=== PATIENT | female | born 1950 | race Caucasian/White ===

== ENCOUNTER 2021-02-06 10:40 | Outpatient (REF) | payer MEDICARE, OTHER, SELFPAY | END 2021-02-06 10:41 | disposition home or self-care (01) | LOC: LBN 10:40 | PROVIDERS: Visit Provider Nurse Practitioner Family | DX: K52.9 Noninfective gastroenteritis and colitis, unspecified (principal) | CPT/HCPCS: 87329 ==

== ENCOUNTER 2021-02-07 09:20 | Outpatient (REF) | payer MEDICARE, OTHER, SELFPAY ==
[2021-02-07 23:44] LABS: Campylobacter PCR Negative (Negative); Salmonella PCR Negative (Negative); Shiga Toxin PCR Negative (Negative); Shigella/Enteroinvasive Ecoli Negative (Negative)
== END 2021-02-07 09:21 | disposition home or self-care (01) ==
LOC: LBN 09:20
PROVIDERS: Visit Provider Nurse Practitioner Family
DX: K52.9 Noninfective gastroenteritis and colitis, unspecified (principal)
CPT/HCPCS: 87329; 87505; 83630; 86674

== ENCOUNTER → 2024-06-22 14:51 | Outpatient (BNVA) | payer MEDICARE, OTHER, SELFPAY | PROVIDERS: PCP Physician Assistant; Referring Provider Physician Assistant; Visit Provider Podiatrist | DX: B07.0 Plantar wart (principal); L84 Corns and callosities; M67.02 Short Achilles tendon (acquired), left ankle; M79.672 Pain in left foot | CPT/HCPCS: 17110; 99203 ==

== ENCOUNTER → 2024-07-22 08:05 | Outpatient (BNVA) | payer MEDICARE, OTHER, SELFPAY | PROVIDERS: PCP Physician Assistant; Referring Provider Physician Assistant; Visit Provider Podiatrist | DX: B07.0 Plantar wart (principal); L84 Corns and callosities; M67.02 Short Achilles tendon (acquired), left ankle | CPT/HCPCS: 17110 ==